=== PATIENT | male | born 1960 | race Caucasian/White ===

== ENCOUNTER → 2024-01-07 06:47 | Outpatient (REF) | payer BC, SELFPAY ==
[2024-01-07 10:43] LABS: ALT (SGPT) 25 U/L (0-50); AST (SGOT) 27 U/L (17-59); Albumin 4.1 g/dl (3.5-5.0); Alkaline Phosphatase 65 U/L (38-126); Blood Urea Nitrogen 15 mg/dl (9-20); Calcium 9.6 mg/dl (8.4-10.2); Carbon Dioxide 23 mmol/L (22-30); Chloride 105 mmol/L (98-107); Glucose 96 mg/dl (70-99); HDL Cholesterol 39 mg/dl; LDL Cholesterol, Calculated 60 mg/dl; Potassium 4.2 mmol/L (3.5-5.1); Sodium 137 mmol/L (135-145); Total Bilirubin 1.2 mg/dl (0.2-1.3); Total Cholesterol 124 mg/dl (50-199); Total Protein 6.9 g/dl (6.3-8.2); Triglyceride 127 mg/dl (10-149); Very Low Density Lipoprotein 25 mg/dl (0-30); eGFR > 60.00
== END ==
LOC: HWLAB 06:47
PROVIDERS: ATTENDING PHYSICIAN Internal Medicine Cardiovascular Disease; FAMILY PHYSICIAN Family Medicine
DX: E78.5 Hyperlipidemia, unspecified (principal); I11.9 Hypertensive heart disease without heart failure
CPT/HCPCS: 36415; 80053; 80061

== ENCOUNTER → 2024-04-03 12:59 | Outpatient (REF) | payer BC, SELFPAY | LOC: HWRAD 12:59 | PROVIDERS: ATTENDING PHYSICIAN Thoracic Surgery (Cardiothoracic Vascular Surgery); FAMILY PHYSICIAN Family Medicine | DX: I35.0 Nonrheumatic aortic (valve) stenosis (principal); Q23.1 Congenital insufficiency of aortic valve | CPT/HCPCS: 71275; 74174; Q9967 ==

== ENCOUNTER 2024-04-17 06:07 | Day surgery (SDC) | payer BC, SELFPAY ==
[2024-04-17] VITALS (7 sets, daily range): BP systolic 106–119; BP diastolic 60–77; BMI 28.4
[2024-04-17] MEDS: NSS 284 ML IV (06:55)
[2024-04-17] MEDS: NSS 1000 IV (09:17)
--- NOTE | 2024-04-17 09:17 | ITS.CL.CATH ---
General Forecaster - Catheterization
Cardiac Catheterization
Procedure Report:
CARDIAC CATHETERIZATION REPORT
Date of Procedure: 04/17/2024
Referring: Mike Mason MD
Indication: Preop angiogram for planned AVR/repair of ascending aortic aneurysm
HEMODYNAMIC DATA
AO: 100/69
LV: 129/18
The mean gradient across the aortic valve is 27 mmHg
LEFT VENTRICULOGRAPHY: Normal left ventricular size and function with EF 61%
ASCENDING AORTOGRAPHY: Mild dilation of the aortic root and borderline dilation of the ascending aorta. There is 2+ aortic regurgitation
CORONARY ANGIOGRAPHY
Dominance: Left
Left Main: Normal
LAD: Mild calcification without focal areas of stenosis
Circumflex: Mild calcification without focal areas of stenosis in the dominant circumflex system
RCA: Normal nondominant vessel
Closure Device: None-the procedure was performed via the right radial artery
Radiation (mGy): 265
DAP (cm2.Gy): 24.5
Fluoroscopy time: 3.1 minutes
CONCLUSIONS
1: Moderate aortic stenosis with mean gradient 27 mmHg. Of note the echo derived aortic valve mean gradient was 40 mmHg
2. Moderate aortic insufficiency
3. Mild dilation of the aortic root and borderline size of ascending aorta
4: Normal left ventricular function with EF 61%
5. No significant CAD
Copy to: Mike Mason MD, Ariel Uribe MD
Riaz Paige MD, [facility], [facility]
== END 2024-04-17 11:59 | disposition home or self-care (01) ==
LOC: CATH 06:07
PROVIDERS: ATTENDING PHYSICIAN Internal Medicine Cardiovascular Disease; FAMILY PHYSICIAN Family Medicine; OTHER PHYSICIAN Internal Medicine Cardiovascular Disease
DX: I71.21 Aneurysm of the ascending aorta, without rupture (principal); I35.0 Nonrheumatic aortic (valve) stenosis; I47.10 Supraventricular tachycardia, unspecified; I10 Essential (primary) hypertension; E78.5 Hyperlipidemia, unspecified; Z87.891 Personal history of nicotine dependence; Z79.82 Long term (current) use of aspirin
CPT/HCPCS: 93458; 93567; C1894; Q9967

== ENCOUNTER 2024-05-01 05:16 | Inpatient (IN) | payer BC, SELFPAY ==
[2024-04-13 09:26] LABS: INR 1.02; PT 13.4 Sec (11.4-14.6)
[2024-04-13 09:27] LABS: APTT 27.2 Sec (23.4-35.0)
[2024-04-13 09:37] LABS: % Basophils 1.2 % (0-2); % Eosinophils 3.6 % (0-6); % Immature Granulocytes 0.4 % (0-0.5); % Lymphocytes 22.5 % (20.5-51.1); % Monocytes 8.9 % (1.7-9.3); % Neutrophils 63.4 % (42.2-75.2); Absolute Basophils 0.1 10^3/uL (0-0.2); Absolute Eosinophils 0.3 10^3/uL (0-0.7); Absolute Lymphocytes 1.8 10^3/uL (1.2-3.4); Absolute Monocytes 0.7 10^3/uL (0.1-0.6); Absolute Neutrophils 5.1 10^3/uL (1.4-6.5); Hematocrit 41.3 % (39.0-52.0); Hemoglobin 14.4 g/dL (13.0-18.0); Mean Corp Hgb Conc. 34.9 g/dL (33.0-37.0); Mean Corpuscular Hgb 30.3 pg (27.0-31.0); Mean Corpuscular Volume 86.9 fL (80.0-94.0); Mean Platelet Volume 9.1 fL (7.4-10.4); Nucleated Red Blood Cells % 0 % (-); Platelet Count 264 10^3/uL (130-400); Red Blood Cell Count 4.75 10^6/uL (4.70-6.10); Red Cell Dist. Width 13.2 % (11.5-14.5); White Blood Cell Count 8.1 10^3/uL (4.8-10.8)
[2024-04-13 10:03] LABS: ALT (SGPT) 21 U/L (0-50); AST (SGOT) 24 U/L (17-59); Albumin 4.3 g/dl (3.5-5.0); Alkaline Phosphatase 66 U/L (38-126); Blood Urea Nitrogen 13 mg/dl (9-20); Calcium 9.6 mg/dl (8.4-10.2); Carbon Dioxide 30 mmol/L (22-30); Chloride 106 mmol/L (98-107); Direct Bilirubin 0.2 mg/dl (0.0-0.4); Glucose 91 mg/dl (70-99); Potassium 5.4 mmol/L (3.5-5.1); Sodium 141 mmol/L (135-145); Total Bilirubin 0.9 mg/dl (0.2-1.3); eGFR > 60.00
[2024-04-13 10:22] LABS: Urine Albumin Negative (Neg - Trace); Urine Bilirubin Negative (Negative); Urine Character Clear (Clear); Urine Color Yellow; Urine Glucose Negative (Negative); Urine Ketone Negative (Negative); Urine Leukocyte Negative (Negative); Urine Nitrite Negative (Negative); Urine Occult Blood Negative (Negative); Urine Urobilinogen Negative (Neg - 1+); Urine pH 6.5 (5.0-9.0)
--- NOTE | 2024-04-13 10:30 | CM ---
CM met w/ patient during PATs for planned AVR, 05/01.
Patient resides in a private, split level home w/ dtr., Sho (RN). There are 1 PETER and 5 steps between each level.
Pt. is functionally indep. 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
Pt. has RX plan and uses [facility] in [place] on [address] for prescription needs.
Soap, shower instructions and Cardiac Surgery booklet provided.
Reviewed pre and post op routines.
Discussed post op restrictions to include lifting, driving, flying and sternal precautions.
Discussed post op MD appts., Cardiac Rehab and visit from CT Transitional Care RN.
Plan is for AVR, 05/01.
Anticipated DC plan is for home with [facility] Transitional [facility] RN.
CM to follow.
[2024-04-13 10:49] LABS: Glycohemoglobin (HgbA1c) 5.6 % (4.0-5.6)
[2024-04-13 13:12] VITALS: BMI 28.0
[2024-05-01] MEDS: LOPRESSOR 25 MG PO (05:53)
[2024-05-01] MEDS: BACTROBAN 2% OINTMENT 1 APPLIC NASAL ×2 (05:53→20:02)
[2024-05-01] MEDS: MAGNESIUM OXIDE 500 MG PO (05:53)
[2024-05-01] MEDS: PROTONIX 40 MG PO (05:53)
[2024-05-01 06:00] VITALS: BMI 27.4
--- NOTE | 2024-05-01 06:09 | W.CVOR.SURPR ---
CVOR Surgeon Immed Pre Op
-
I have examined this patient prior to performance of the scheduled procedure.
The patient's condition is unchanged from the time of the dictated/written History and
Physical and the patient is able to undergo the scheduled procedure.
Sternotomy AVR (biological) + LA MAZE + ANITA Clip
[2024-05-01 07:24] LABS: Urine Albumin Negative (Neg - Trace); Urine Bilirubin Negative (Negative); Urine Character Clear (Clear); Urine Color Yellow; Urine Glucose Negative (Negative); Urine Ketone Negative (Negative); Urine Leukocyte Negative (Negative); Urine Nitrite Negative (Negative); Urine Occult Blood Negative (Negative); Urine Urobilinogen Negative (Neg - 1+)
[2024-05-01 07:35] LABS: ACT+ - POC 90 Seconds (82-134)
[2024-05-01 08:13] LABS: ACT+ - POC 439 Seconds (82-134)
[2024-05-01 08:32] LABS: B.E. - POC 0.4 mmol/L; Glucose - POC 106 mg/dl (65-99); HCO3 - POC 26 mmol/L (21-29); Hematocrit - POC 36 % PCV (42-52); Hemodilution- POC No; Hemoglobin Calculated - POC 12.3; Ionized Calcium - POC 1.23 mmol/L (1.12-1.27); O2 Saturation %Calculated-POC 99.8 5 (92-96); PCO2 - POC 43 mmHg (35-45); PO2 - POC 229 mmHg (80-100); POC Comment PRE; Sodium - POC 144 mmol/L (135-145); pH - POC 7.39 (7.35-7.45)
[2024-05-01 08:42] LABS: ACT+ - POC 538 Seconds (82-134)
[2024-05-01 09:14] LABS: B.E. - POC 2.3 mmol/L; Glucose - POC 109 mg/dl (65-99); HCO3 - POC 27 mmol/L (21-29); Hematocrit - POC 27 % PCV (42-52); Hemodilution- POC Yes; Hemoglobin Calculated - POC 9.3; PCO2 - POC 38 mmHg (35-45); PO2 - POC 468 mmHg (80-100); POC Comment CPB; Potassium - POC 5.5 mmol/L (3.6-5.0); Sodium - POC 141 mmol/L (135-145); pH - POC 7.45 (7.35-7.45)
[2024-05-01 09:25] LABS: ACT+ - POC 508 Seconds (82-134)
[2024-05-01] MEDS: ANCEF 10 IV ×2 (09:45→12:04)
[2024-05-01 09:49] LABS: B.E. - POC -3.9 mmol/L; Glucose - POC 152 mg/dl (65-99); HCO3 - POC 22 mmol/L (21-29); Hematocrit - POC 34 % PCV (42-52); Hemodilution- POC Yes; Hemoglobin Calculated - POC 11.4; Ionized Calcium - POC 1.06 mmol/L (1.12-1.27); O2 Saturation %Calculated-POC 99.9 5 (92-96); PCO2 - POC 41 mmHg (35-45); PO2 - POC 372 mmHg (80-100); POC Comment REWARM; Potassium - POC 5.4 mmol/L (3.6-5.0); Sodium - POC 147 mmol/L (135-145); pH - POC 7.33 (7.35-7.45)
[2024-05-01 09:55] LABS: ACT+ - POC 87 Seconds (82-134)
[2024-05-01 10:07] LABS: B.E. - POC 3.4 mmol/L; Glucose - POC 137 mg/dl (65-99); HCO3 - POC 28 mmol/L (21-29); Hematocrit - POC 31 % PCV (42-52); Hemodilution- POC Yes; Hemoglobin Calculated - POC 10.4; Ionized Calcium - POC 1.21 mmol/L (1.12-1.27); O2 Saturation %Calculated-POC 99.9 5 (92-96); PCO2 - POC 42 mmHg (35-45); PO2 - POC 342 mmHg (80-100); POC Comment POST; Potassium - POC 4.5 mmol/L (3.6-5.0); Sodium - POC 145 mmol/L (135-145); pH - POC 7.44 (7.35-7.45)
--- NOTE | 2024-05-01 10:30 | W.PN.CT.SURG ---
CT Surgery Operative Note
-
CARDIAC SURGERY OPERATIVE REPORT
Preoperative Diagnosis: Mixed aortic valve stenosis and insufficiency with bicuspid valve morphology and new onset atrial fibrillation
Postoperative Diagnosis: Same
Procedure(s) Performed:
1. Standard sternotomy with aortic and right atrial cannulation
2. Surgical aortic valve replacement [27 mm bioprosthesis]
3. Surgical left atrial ablation [modified maze]
4. Left atrial appendage exclusion [35 mm clip]
5. Placement of temporary ventricular pacing wires
6. Transesophageal echocardiography
Date of Surgery: 05/01/2024
Comorbidities:
1. Moderate aortic valve stenosis and moderate aortic valve insufficiency, symptomatic
2. Paroxysmal atrial fibrillation
3. Hypertension
4. Hyperlipidemia
5. Bicuspid aortic valve morphology
6. Orthopedic issues
Attending Surgeon: Mike Mason MD, MS
Assistants: Mike Rolle PA-C (present and necessary to ophthalmic assistant, retraction, suction, exposure, suture management, and wound closure under my direction)
Anesthesiology: Gabe Correa MD and Stella Muniz CRNA
Scrub and Circulating RNs: Diane Maynard RN, Kelli Damon RN
Sales Ledger Clerk: Severo Medrano CCP
Anesthesia: GETA
EBL: per perfusion records
Products: None
CPB Time: 78 minutes
Aortic Cross Clamp Time: 68 minutes
Indication(s) for Procedures: This is a 63-year-old male with known bicuspid aortic valve morphology and also family history of bicuspid aortic valve disease requiring surgical intervention, he has preserved left ventricular ejection fraction and a
normal ascending and root diameter on CT angiogram. He did develop more recently shortness of breath and fatigue with exertion. This has become more noticeable over the last 6 months when he was previously asymptomatic. Due to his mixed
pathology, I believe he met indication for surgical intervention. He also developed new onset atrial fibrillation and so a maze procedure was offered.
Aortic Valve Description: Bicuspid aortic valve with left right fusion, type II, heavily calcified at the commissures inserting into the base of the annulus, left and right coronary arteries were in the normal anatomic positions with a smaller right
coronary ostium.
Findings: His left ventricular ejection fraction preoperatively was normal at 60%. Following surgery his EF remained the same at 60%. There were no new regional wall motion abnormalities. He had a mean gradient of 27 mmHg in a solid degree of
moderate aortic valve insufficiency with a slightly dilated left ventricle. His aortic valve was replaced with a 27 mm bioprosthesis using a total of 15 nonpledgeted 2 Ethibond sutures anchored with core knots. His left atrial appendage was
verified to be free of any thrombus or debris preoperatively and found to be totally occlusive postoperatively with a 35 mm clip. Using the encompass clamp a 3 successful pairs of ablations were performed completing the PVI and posterior left
atrial wall ablation lines. After coming off of cardiopulmonary bypass there is no paravalvular leak, a mean gradient of 4 across the new bioprosthesis, and normal leaflet excursion. RV function and size were both normal. He did not require any
inotropic support, he did not require any pacing support, he did not require any products.
Specimen(s): Aortic valve.
Prosthesis:
1. 27 mm Kinney Inspiris Resilia AVR, serial #[id number]
2. 35 mm left atrial appendage clip, serial #[id number]
Left atrial ablation lines:
1. Bilateral pulmonary vein isolation
2. Posterior box lesion
3. Division of the ligament of Segundo
4. Left atrial appendage exclusion with a clip
Description of Procedure: The patient was taken to the operating room. Their identity and procedure to be performed were verified and they were positioned supine on the operating table. Induction via general anesthesia with endotracheal intubation
was performed and central venous access and arterial monitoring were inserted. A preoperative transesophageal echocardiogram was performed to assess cardiac function and valvular function. The patient was then prepped and draped from chin to feet in
a sterile fashion. A preoperative time-out was performed with all members of the team present. A midline chest incision was performed along with median sternotomy. The innominate vein was isolated. Full heparinization was given (a total of 45,000
units). We created a pericardial well. The aortic cannulation site was chosen where it was soft, pliable, and free of calcium. Cannulation was performed with an arterial cannula in the ascending aorta and a triple-stage venous cannula through the
right atrial appendage. The arterial cannula line had an appropriate bounce and correlating pressures with test dosing. Next, a root vent/antegrade cannula was inserted into the ascending aorta. The ACT was confirmed to be over 400 and retrograde
autologous priming was performed before commencing cardiopulmonary bypass. A retrograde coronary sinus catheter was placed via the right atrium and verified by manual palpation and transesophageal echocardiography. At this point the oblique sinus
was developed as was the space between the superior vena cava and the right coronary artery. The encompass ablation clamp was then placed across both sinuses and 3 successful pair of ablations were performed. The pulmonary artery was
away from the aorta to facilitate a clamp site and aortotomy. A left ventricular vent was placed at the right superior pulmonary vein and secured. The aortic cross-clamp was placed after decreasing the flow on the bypass and mean arterial pressure.
A total of 1.2L initial dose of antegrade and retrograde Del-Nido cardioplegia solution was given and planned for re-dosing every 75 minutes as necessary. There was electro-mechanical arrest of the heart at 750 cc of cardioplegia. The left ventricle
was observed for distention on echocardiogram and manual palpation. Cold slush was placed into a sponge and topically on the RV while we systemically cooled to 34 degrees centigrade. As there was a bit of the leg and cardiac arrest, I did give
additional ostial cardioplegia which resulted in satisfactory electro myocardial quiescence. With the heart arrested, I medialized and divide the ligament of Segundo in place a 35 mm clip flush the base of the left atrial appendage.
Carbon dioxide was used to flood the field. We manually identified the location of the right coronary take off. An aortotomy was made approximately 2cm above the sinotubular junction. The location of both left and right coronary vessels were
visualized in the root.The leaflets were excised and sent for pathological assessment. The annulus was debrided of any calcium being mindful of the annulus and membranous septum. The root and left ventricular outflow tract were thoroughly irrigated
to remove any debris. A total of 15 non-pledgeted 2-0 ethibond inverted annular sutures were placed [id number] circumferentially. These were brought through the sewing cuff of the prosthetic valve which as then parachuted into place. The left and
right coronary ostia were visualized and were unobstructed by the valve. A Cor-Knot device was used to secure the annular sutures. The valve was inspected and was well seated. The aortotomy was approximated with 4-0 prolene in two layers. De-airing
maneuvers were performed and temporary bipolar ventricular pacing wires were placed on the base of the right ventricle. The patient was placed in a Trendelenburg position and flows on bypass were lowered. The aortic cross clamp was removed and flows
were slowly brought back up. The aortotomy appeared hemostatic. Transesophageal echocardiography revealed no paravalvular leak and appropriate prosthetic function. Once de-airing was satisfactory, the left ventricular and retrograde cannulas were
removed. After verifying acceptable parameters, we initiated weaning from cardiopulmonary bypass. Once we were off cardiopulmonary bypass, the venous cannula was clamped and removed. The root vent was removed once de-airing was satisfactory. A test
dose of protamine was administered and the patient was monitored for any adverse reaction before resuming protamine. Once half of the protamine dose was delivered, pump suckers were turned off and the systolic blood pressure was lowered for aortic
decannulation. The aortic cannula was removed and pursestrings were tied down. All cannulation sites were oversewn with a 4-0 prolene. The aortotomy suture line was inspected and hemostasis was confirmed. Mediastinal hemostasis was obtained. Two
24Fr Chidi drains were placed within the pericardium. The sternum was approximated with 4 #7 single and 3 #8 double stainless steel wires. There was some bleeding from one of the left sided double wires and so this was ligated with large Vicryl
suture to good effect. Fascia was approximated with #1 vicryl suture. The subcutaneous, dermis and epidermis were closed in layers in a running fashion. The skin wound was cleansed and dressed.
All instrument, sponge, and needle counts were confirmed to be correct x 2 at the end of the operation. The patient was transferred to the cardiac intensive care unit in critical but stable condition.
IDr. Mike, was present, scrubbed for, and performed all critical elements of this procedure.
Mike Mason MD, MS
Cardiothoracic Surgeon
[facility]
This operative dictation was created using the [employer] dictation system. Please excuse any grammatical, typographical, or 'sound alike' errors
--- NOTE | 2024-05-01 10:35 | W.PN.CD ---
Addendum entered and electronically signed by Evelia Fay MD 05/01/24 12:07:
I saw and examined the patient.
The GENERAL FOUNDRY WORKER's note was reviewed and I agree with the note.
Comment: 63 y/o male with bicuspid aortic valve, aortic stenosis, aortic insufficiency, dilated aortic root, hypertension, dyslipidemia, PSVT, ventricular ectopy, and dyslipidemia who is now s/p AVR.He is doing well post op. On exam, he is sedated
but opens his eyes to name. On a small amount of levophed. Continue post op day 0.
Original Note:
Today's Communication / Plan
-
Close post-op monitoring and care with weaning of drips and vent as tolerated per CT surgery and CVICU protocol
Impression / Plan
-
63 y/o male with bicuspid aortic valve, aortic stenosis, aortic insufficiency, dilated aortic root, hypertension, dyslipidemia, PSVT, ventricular ectopy, and dyslipidemia who is now s/p AVR.
Aortic stenosis and insufficiency, bicuspid aortic valve:
-s/p bio AVR, MAZE, ANITA clip 05/01/24 Dr. Mason
-intra-op TANYA with EF 60%
-post-op EKG and tele stable in SR
-Cabrera, CT's, pacer wire in place
-post-op CXR pending
HTN:
-monitor post-op
Hx pSVT, Ventricular ectopy:
-tele stable in SR
-continue BB and follow telemetry
-of note, per CT surgery note patient with history of PAF with MAZE and clip done as noted. Details of PAF unclear to me currently- obtain more info when patient alert. Follow telemetry.
HLD:
-on statin as OP
Physical Exam
Vital Signs/Labs
Vital Signs
Temp Pulse Resp BP Pulse Ox
99.3 F 76 18 121/79 98
05/01/24 05:50 05/01/24 05:53 05/01/24 05:50 05/01/24 05:53 05/01/24 05:50
04/30/24 05/01/24 05/02/24
06:59 06:59 06:59
Actual Weight 91.4 kg
PT 13.4 Sec (11.4-14.6) 04/13/24 08:31
INR 1.02 04/13/24 08:31
APTT 27.2 Sec (23.4-35.0) 04/13/24 08:31
Physical Exam
Constitutional: No acute distress
EENT: Anicteric
Cardiovascular: Rhythm & rate is regular
Respiratory: Lungs clear to auscul. and Other (intubated and ventilated)
Neuro/Psych: Other (sedated)
Other: Skin (midsternal incision site stable )
Data Reviewed
-
Date of Service: May 01, 2024
EKG: Report Reviewed by me (as above)
Labs: Labs Reviewed by me
--- NOTE | 2024-05-01 10:46 | W.PN.UPDATE ---
Update Note
Progress Note Update
63 year old male electively admitted on 05/01/2024 for AVR, MAZE, and left atrial appendage clip due to bicuspid aortic valve with aortic stenosis and PSVT/ new onset AFib
IV fluids: 1200
U.O.:� 400
Blood:� none
Wires:� Bipolar V-wire
Gtts: Levo @ 2, Precedex @ 0.5, Insulin
�
NEURO: sedated on Precedex, pupils +2mm B/L
RESP: #8OT @22cm> 500/60%/07/02. Lungs clear B/L. 2 mediastinal (10cc on arrival) chest tubes to -20cm suction. Sanguineous drainage
CV: RRR +S1, S2, no S3, no�rub, no murmur. Dermabond to median sternotomy. RIJ w/Tomball locked @ 52cm. PA 24/11; CVP 6; C.O 5/CI 2.1
ABD: round, soft, no BS
EXT: no edema, +2/4 DP pulses B/L, no femoral bruit, right radial A-line intact
: Cabrera with clear yellow urine
�
A/P: POD #0 s/p AVR #27 mm Kinney Inspiris Resilia tissue valve, left atrial ablation [modified maze], left atrial appendage exclusion [#35 mm clip]
TANYA: EF�65%, AV 7/4mmHg, no AI. Trace TR. Asc Ao 3.8cm
- wean Levo to maintain MAP>60
- wean and extubate
- will need instruction regarding antibiotic prophylaxis for dental and invasive procedures
- will need predischarge TTE
�
# acute surgical blood loss anemia-expected
- post-op Hb 10.9
- Ferric gluconate x 3 doses
- trend CBC
�
# Post-op hyperglycemia-expected (A1C 5.6)
- insulin infusion x 24h
- trend glucose>SSI of needed after insulin infusion DC'd
# Hypertension
- resume Toprol XL 100mg daily when BP permits and off Levophed
�
# Hyperlipidemia
- resume�home dose of Crestor 10mg daily when tolerating solids
# Moderate emphysema (per CT C/A/P)
- FEV1 80%; DLCO 82%
- quit tobacco 4 years ago
- pulmonary senior consultant following post-op
- prn nebs ordered
[2024-05-01 10:47] LABS: Glucose - Point of Care 140 mg/dl (70-99)
--- NOTE | 2024-05-01 11:00 | PTCARENOTE ---
received patient from [facility] sedated and placed on vent by MEDICAL BILLING REPRESENTATIVE. out with usual lines, CTx2. on levo precedex and insulin per glycemic protocol. CXR, EKG done and labs drawn. v wires present but off. SR on monitor. HR 80-90s. CT connected to wall
suction. no air leaks/crepitus noted. Draining red. Bowel sounds hypoactive. Cabrera draining clear yellow urine. Pulses palpable. no edema. MSI open to air with surgical glue. approximated. will continue ot monitor.
[2024-05-01 11:04] LABS: Hematocrit 30.8 % (39.0-52.0); Hemoglobin 10.9 g/dL (13.0-18.0); Platelet Count 139 10^3/uL (130-400)
[2024-05-01 11:08] LABS: B.E. 1.5 mmol/L; HCO3 26.6 mmol/L (21-28); Ionized Calcium 1.16 mMOL/L (1.15-1.33); O2 Saturation % 99.1 % (94-98); PCO2 43 mmHg (35-48); PO2 171 mmHg (83-108); Potassium 4.3 mMOL/L (3.5-5.1); Sodium 141 mMOL/L (136-145)
[2024-05-01 11:10] LABS: INR 1.49; PT 17.8 Sec (11.4-14.6)
--- NOTE | 2024-05-01 11:10 | CM ---
Chart reviewed. Patient is in the OR. Patient is independent of ADLS, lives with his daughter in a split level home, 1 PETER, 0 DME. Plan is for the patient to return home with CT Transitional RN. CM to follow
[2024-05-01 11:11] LABS: APTT 33.2 Sec (23.4-35.0); Mixed Venous O2 Saturation 79.1 %
[2024-05-01 11:12] LABS: Blood Urea Nitrogen 12 mg/dl (9-20); Estimated Creatinine Clearance 122 ml/min; Glucose 136 mg/dl (70-99); Magnesium 2.7 mg/dl (1.6-2.3)
--- NOTE | 2024-05-01 11:32 | CON.INTV ---
Consultation
Consultation Request
Date/Time Consultation Requested: 05/01/2024956
Date/Time Consultation Performed: 05/01/2024 - 1022
Requesting Provider: Deanna Fernandez PA-C
Performing Provider: Ariel Robert MD
Reason for Consultation: s/p SAVR
Medical History
-
Chief Complaint: Elective SAVR
History of Present Illness:
63-year-old male former tobacco smoker (80-btzd-oumv, quit 2019) with a past medical history of severe aortic valve stenosis, bicuspid aortic valve, AAA, hypertension, hyperlipidemia and paroxysmal SVT who presents with surgical aortic valve
replacement. Patient known to cardiothoracic surgery with last office visit on 03/28/2024 Dr. Mason. Most recent echo from December 2023 showed severe aortic valve stenosis with a preserved LVEF at 59% and no regional WMA. Patient was describing
worsening fatigue/shortness of breath especially with exertion. He remains an active man. He underwent left heart catheterization on 04/17/2024 showing moderate aortic stenosis with mean gradient across the AV of 20 mmHg, with no significant CAD.
Surgical treatment of his AV stenosis was discussed, and today he underwent sternotomy with SAVR, surgical LA-ablation (modified MAZE) with ANITA�exclusion. Patient tolerated procedure well and was transferred to the CVICU postoperatively with
critical care services consulted for additional management/recommendations.
When I saw the patient he was in bed, minimally sedated but answering questions appropriately and wants the tube out of his throat. He was in NAD. Heart rate 99, BP via right radial A-line 97/69, PAP: 27/16, SpO2 99% on SIMV 14/500/40%/5 with PIP
15 cmH2O, breathing at 13 breaths/min and VTe 520 mL, CO/CI: 5.1/2.38. He is on insulin gtt at 3 units/hr, Precedex 0.3mcg/kg/hr and Levophed at 1mcg/min. He has mediastinal chest tubes x 2.
PMHx: Bicuspid aortic valve, AAA, severe aortic valve stenosis, paroxysmal SVT, hypertension, torn meniscus, hyperlipidemia, frozen right shoulder, former tobacco use disorder
PSHx: Hernia repair as a child
Past Medical History
Past Medical History: Other (Above as per HPI)
Past Surgical History: Other (Above as per HPI)
Social History
Tobacco: Former Smoker (Quit in 2019, 60-woua-eovb history)
Alcohol: None
Drug: None
Personal:
Living: With Family (his father)
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
Family History
Family History: Cancer (Father: Colon cancer) and Other (Mother: Alzheimer's dementia; bicuspid aortic valve s/p mechanical SAVR)
Allergies / Home Medications
Allergies
Allergy/AdvReac Type Severity Reaction Status Date / Time
No Known Allergies Allergy Verified 04/17/24 06:38
Home Medications
�Medication �Instructions �Recorded �Confirmed �Last Taken �Type
ascorbic acid (vitamin C) 1,000 mg 1,000 mg PO DAILY Supplement 04/07/24 05/01/24 04/30/24 08:00 History
tablet (Vitamin C)
metoprolol succinate 100 mg 100 mg PO DAILY Heart 04/07/24 05/01/24 04/30/24 08:00 History
tablet,extended release 24 hr Disease/Condition
rosuvastatin 10 mg tablet 10 mg PO DAILY High Cholesterol 04/07/24 05/01/24 04/30/24 08:00 History
tadalafil 10 mg tablet (Cialis) 10 mg PO DAILY PRN ED 04/07/24 05/01/24 04/30/24 08:00 History
valacyclovir 1 gram tablet 1 mg PO PRN PRN cold sores 04/07/24 05/01/24 04/30/24 08:00 History
(Valtrex)
aspirin 81 mg tablet,delayed 81 mg DAILY Blood Clot 04/17/24 04/17/24 04/30/24 08:00 History
release Prevention/Tx
Review of Systems
-
Unable to Obtain full review of systems at this time due to: Patient Intubation
Vitals / Labs / Diagnostic Testing
Vital Signs
Temp Pulse Resp BP Pulse Ox
97 F 90 14 121/79 98
05/01/24 11:00 05/01/24 10:58 05/01/24 10:58 05/01/24 05:53 05/01/24 10:58
Lab Data
05/01/24 10:35
Laboratory Results
05/01/24
10:35
PT 17.8 H
INR 1.49
APTT 33.2
pH 7.40
pCO2 43
pO2 171 H
HCO3 26.6
O2 Delivery Level
Diagnostic Testing:
Physical Exam
-
HEENT: Normocephalic, Anicteric and Other (ETT in place)
Cardiovascular: S1/S2 and Peripheral Edema (negative)
Respiratory: Wheeze (negative), Rales (negative), Rhonchi (negative), Non-Labored Respirations, Other (Mechanical breath sounds heard bilaterally) and Other (Chest tube (mediastinal x 2))
GI: Soft, Non Distended, Non Tender and Normal Bowel Sounds
Neurology: Awake, Alert and Tremors (negative)
Skin: Warm and Dry
General: Respiratory Distress (negative), Comfortable, Chills (negative) and Sweats (negative)
Assessment
-
Assessment: 63-year-old male former tobacco smoker (76-[id number]-bbya, quit 2019) with a past medical history of severe aortic valve stenosis, bicuspid aortic valve, AAA, hypertension, hyperlipidemia and paroxysmal SVT who presents with surgical aortic
valve replacement. Patient known to cardiothoracic surgery with last office visit on 03/28/2024 Dr. Mason. Most recent echo from December 2023 showed severe aortic valve stenosis with a preserved LVEF at 59% and no regional WMA. Patient was describing
worsening fatigue/shortness of breath especially with exertion. He remains an active man. He underwent left heart catheterization on 04/17/2024 showing moderate aortic stenosis with mean gradient across the AV of 20 mmHg, with no significant CAD.
Surgical treatment of his AV stenosis was discussed, and on 05/01/2024 he underwent sternotomy with SAVR, surgical LA-ablation (modified MAZE) with ANITA�exclusion. Patient tolerated procedure well and was transferred to the CVICU postoperatively with
critical care services consulted for additional management/recommendations.
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
Impression:
#Aortic valve stenosis/insufficiency with bicuspid valve morphology and new onset paroxysmal atrial fibrillation s/p SAVR, modified MAZE + ANITA�exclusion (POD #0)
#Anemia
#Thrombocytopenia (mild)
#Former tobacco use disorder (90-[id number]-mboe, quit 2019)
#Upper lobe predominant paraseptal emphysema (due to tobacco use)
#History of hypertension
Plan:
Ventilator settings reviewed
FiO2 will be weaned to maintain SpO2 >90-94%
Minute ventilation will be adjusted
Arterial blood gases will be monitored
Spontaneous breathing trial will be attempted with hopeful extubation after anesthesia/sedation wear off
prn nebulized bronchodilators
Pulmonary artery catheter parameters will be followed
Pressors/antihypertensive/inotropes/diuretics will be provided as needed
Maintain MAP>65
Replete electrolytes with K>4, Mg>2
Monitor chest tube output
Monitor hemoglobin
Monitor platelet count and coags
Transfuse blood product if needed to maintain Hb>7g/dL, plt>50k (given post-operative status)
CT surgery managing chest tubes (mediastinal x 2)
Monitor blood sugar to maintain euglycemia with goal BG 140-180
Insulin drip per protocol
Aspiration precautions
VAP prevention protocol
DVT prophylaxis
Early nutrition
Early mobilization
Given his significant tobacco use history, he does qualify for annual LDCT chest. He recently had a CT chest on 04/03/2024 showing moderate bilateral upper lobe paraseptal emphysema with no focal consolidation, mass or nodule seen. Next CT chest
should be done in March 2025. Outpatient follow-up will be arranged to discuss lung cancer screening as well as obtain full PFTs to assess for COPD.
Critical care services will continue to follow along while patient remains in the CVICU.
Critical care statement: A total of 46 minutes of critical care time was provided for this patient today. This includes management of ventilator, spontaneous breathing trial, arterial blood gases, pressors, of unstable vital signs, evaluation of the
patient at bedside, reviewing the patient's pertinent medical records including radiographs, microbiology, laboratory evaluations, and discussion with primary team and critical care nursing.
[2024-05-01] MEDS: CALCIUM CHLORIDE 10% SYRINGE 50 ML IV (11:59)
[2024-05-01] MEDS: CALCIUM CHLORIDE 10% SYRINGE 50 MG IV (11:59)
[2024-05-01] MEDS: NSS 500 IV (12:03)
[2024-05-01 12:04] LABS: Glucose - Point of Care 138 mg/dl (70-99)
[2024-05-01] MEDS: CRESTOR PO (12:04)
[2024-05-01] MEDS: NEURONTIN PO (12:04)
[2024-05-01] MEDS: VITAMIN C PO (12:04)
[2024-05-01 13:14] LABS: Glucose - Point of Care 128 mg/dl (70-99)
[2024-05-01 13:52] LABS: B.E. 2.8 mmol/L; HCO3 27.2 mmol/L (21-28); Ionized Calcium 1.36 mMOL/L (1.15-1.33); PCO2 40 mmHg (35-48); PO2 183 mmHg (83-108); pH 7.44 (7.35-7.45)
[2024-05-01 13:54] VITALS: BP_SYST 91
[2024-05-01 14:03] LABS: Hematocrit 32.7 % (39.0-52.0); Hemoglobin 11.7 g/dL (13.0-18.0); Platelet Count 181 10^3/uL (130-400)
[2024-05-01] MEDS: DILAUDID 0.25 MG IV (14:07)
--- NOTE | 2024-05-01 14:11 | PTCARENOTE ---
extubated 1400 to 6L nc with DATABASE SECURITY EXPERT at bedside. pulse ox 99% IS 1250;
[2024-05-01 14:14] LABS: Glucose - Point of Care 99 mg/dl (70-99)
[2024-05-01 15:19] LABS: Glucose - Point of Care 142 mg/dl (70-99)
[2024-05-01] MEDS: TYLENOL 1000 MG PO ×2 (15:21→22:01)
[2024-05-01] MEDS: LOW STRENGTH ASPIRIN 81 MG PO (15:25)
[2024-05-01] MEDS: NEURONTIN 100 MG PO ×2 (15:25→22:02)
[2024-05-01] MEDS: PACERONE 200 MG PO ×2 (15:25→22:02)
[2024-05-01] MEDS: DILAUDID 0.5 MG IV ×2 (16:18→19:07)
[2024-05-01] MEDS: ANCEF 5 IV (17:26)
[2024-05-01 17:30] LABS: Glucose - Point of Care 129 mg/dl (70-99)
[2024-05-01 19:16] VITALS: BP 94/63; BP 95/72
[2024-05-01 19:24] LABS: Glucose - Point of Care 129 mg/dl (70-99)
[2024-05-01 20:00] VITALS: BP 104/68; BP 99/72
--- NOTE | 2024-05-01 20:00 | PTCARENOTE ---
Assumed care of patient at 1900. Patient found resting in bed at time of assessment. Patient is AOx4, follows commands appropriately, moves all extremities. Lung sounds are diminished throughout, patient has saO2 96% on 2L via NC, CTx2: 2xmed to one
atrium draining red sanguineous. Heart sound shave a regular rate and rhythm, there is a rub present on auscultation, patient is SR/ST on the monitor. Patient has normal palpable pulses and no edema. Patient has soft nontender abdomen and hypoactive
BS. There is a lowery in place draining clear yellow urine. Patient has sternal incision approx with surg adhesive and travel cota. There is a 4x[address] wounds that is CDI. Patient has R IJ cordis with swan floated to 50cm odalis, R radial A
line, and R AC 18g. Patient has the following gtts: Levo@2, insulin@2.6 and Cordis/VIP KVO. VSS. Patient received prn dose dilaudid from previous RN for incisional pain which appears to have provided adequate relief at this time. Patient is stable.
[2024-05-01] MEDS: SENOKOT-S 1 TABLET PO (20:02)
[2024-05-01 21:00] VITALS: BP 99/73
[2024-05-01 22:00] VITALS: BP 102/76
[2024-05-01 22:08] LABS: Glucose - Point of Care 123 mg/dl (70-99)
--- NOTE | 2024-05-01 22:39 | PTCARENOTE ---
Orders received to discontinue swan rodrick catheter given patient's stable PAP, CVP and CI. Removed, cleaned and redressed without incident.
[2024-05-02] VITALS (23 sets, daily range): BP systolic 93–125; BP diastolic 60–77; PULSE 90; O2SAT 95; BMI 27.7
--- NOTE | 2024-05-02 | PTCARENOTE ---
Patient reassessed. VSS. No c/o pain at this time. Remains SR on the monitor. Levo remains off since 2234 MAP remains >65.
[2024-05-02 00:29] LABS: Glucose - Point of Care 125 mg/dl (70-99)
[2024-05-02] MEDS: ANCEF 5 IV ×2 (01:16→10:11)
[2024-05-02 01:41] LABS: Glucose - Point of Care 119 mg/dl (70-99)
[2024-05-02 02:37] LABS: Glucose - Point of Care 121 mg/dl (70-99)
[2024-05-02] MEDS: ROXICODONE 5 MG PO ×2 (03:41→18:33)
[2024-05-02 03:46] LABS: Hematocrit 29.7 % (39.0-52.0); Hemoglobin 10.5 g/dL (13.0-18.0); Mean Corp Hgb Conc. 35.4 g/dL (33.0-37.0); Mean Corpuscular Hgb 30.3 pg (27.0-31.0); Mean Corpuscular Volume 85.6 fL (80.0-94.0); Platelet Count 163 10^3/uL (130-400); Red Blood Cell Count 3.47 10^6/uL (4.70-6.10); Red Cell Dist. Width 13.6 % (11.5-14.5); White Blood Cell Count 17.6 10^3/uL (4.8-10.8)
[2024-05-02 03:48] LABS: Glucose - Point of Care 104 mg/dl (70-99)
[2024-05-02 04:04] LABS: Blood Urea Nitrogen 18 mg/dl (9-20); Calcium 8.4 mg/dl (8.4-10.2); Carbon Dioxide 28 mmol/L (22-30); Chloride 110 mmol/L (98-107); Estimated Creatinine Clearance 122 ml/min; Glucose 98 mg/dl (70-99); Potassium 3.9 mmol/L (3.5-5.1); Sodium 140 mmol/L (135-145); eGFR > 60.00
--- NOTE | 2024-05-02 04:27 | W.PN.CT ---
Today's Communication / Plan
-
-pod #1
-no issues overnight
-CI 3.03, CO 6.48. Drips: insulin
-CT output: 2 meds 130/295 in 12 /24 hrs
-dcd swan
-d/c a-line
-d/c Cabrera
-d/c insulin
-current meds (ASA, Crestor, Lopressor 25 bid, Amio, Protonix, iv iron/vit C)
-encourage IS, OOB
Assessment / Plan
-
- Mixed AV stenosis and insufficiency with bicuspid valve morphology and new onset a-fib- s/p AVR (27 mm Kinney Inspiris Resilia), modified maze, and LAAE (35 mm clip) by Dr. Mason on 05/01/24, pod #1
- Intraop TANYA: LVEF 60% pre and post, no wma; no paravalvular leak, a mean gradient of 4 across the new bioprosthesis, and normal leaflet excursion. RV function and size were both normal.
- Paroxysmal atrial fibrillation
- Hypertension
- Hyperlipidemia
- Catheterization on 04/17/2024 with no significant CAD
- Hx PSVT
- Hx injury of the ascending colon, open wound of the abdomen
- Ascending aortic aneurysm
- Frozen R shoulder
- Former smoker, quit in 2019
- Acute postop blood loss anemia - stable without transfusion
- Acute postop atelectasis
- Acute postop hypovolemia with subsequent hypervolemia
- Suspected acute postop pericarditis/+rub
Discussed patient care with: Nursing and Care Team
Subjective
Procedure
s/p AVR (27 mm Kinney Inspiris Resilia), modified maze, and LAAE (35 mm clip) by Dr. Mason on 05/01/24
-
Date of Service: May 01, 2024
Objective Data
-
Lab Results
05/01/24 13:40
05/01/24 10:35
PT 17.8 Sec (11.4-14.6) H 05/01/24 10:35
INR 1.49 05/01/24 10:35
APTT 33.2 Sec (23.4-35.0) 05/01/24 10:35
Vital Signs
Vital Signs
Temp Pulse Resp BP Pulse Ox
98.3 F 94 12 99/73 96
05/01/24 21:00 05/01/24 21:35 05/01/24 21:35 05/01/24 21:00 05/01/24 21:35
CT Intake/Output/Weight
05/01/24 05/01/24 05/02/24
06:59 18:59 06:59
Intake Total 855.6 / 1005.9 150.3 / 1005.9
Output Total 835 / 960 125 / 960
Balance 20.6 / 45.9 25.3 / 45.9
SaO2: 96
Physical Exam
-
General: Awake and AOx3
Cardiovascular: Regular rate & rhythm, No Murmurs and Rub
Respiratory: Decreased Breath Sounds
Sternum: Stable
Incision: Clean, Dry and Intact
Extremities: Other (trace edema b/l, 2+ DPs b/l)
Data Reviewed
-
Lab Results: Results Reviewed
Medications: Active Meds Reviewed
Chest X-Ray: Report Reviewed and Image Reviewed
ECG: Report Reviewed and Image Reviewed
[2024-05-02] MEDS: KCL 50 IV (04:33)
[2024-05-02 04:40] LABS: Glucose - Point of Care 111 mg/dl (70-99)
--- NOTE | 2024-05-02 05:46 | PTCARENOTE ---
Patient reassessed. VSS. Patient given oxy 5 for c/o 6/10 sternal incision pain. Orders received to deline patient's marjorie. Deborah discontinued. DTV 1120. AM labs obtained. Patient to be repleted with 20mEq K IV per CT PA. Assisted patient oob to
chair. Remains on 2L O2 via NC.
[2024-05-02] MEDS: TYLENOL 1000 MG PO ×3 (05:48→21:05)
--- NOTE | 2024-05-02 07:00 | PTCARENOTE ---
Bedside walking rounds report received. Patient seen on rounds oob in chair on 2l nasal canula: titrated to room air and pulse ox sats were 94% IS 1250 to 1500ml. NSR with rates in the 90's. Epicardial v wire connected to [email or web address] box and off.
Mediastinal chest tubes x 2 to -20cm wall suction and patent for serosang drainage. See flowrecord for remaining assessments.
[2024-05-02 07:05] LABS: Glucose - Point of Care 136 mg/dl (70-99)
[2024-05-02 07:52] LABS: Glucose - Point of Care 148 mg/dl (70-99)
--- NOTE | 2024-05-02 08:04 | W.PN.ANS.POP ---
Anesthesia Post Operative
- Anesthesia Post Op Note
Vital Signs Stable-See Nursing Note: Yes
Airway Patent: Yes
Adequate Pain Control: Yes
Change in Mental Status: No
Current Postoperative Nausea & Vomiting: No
Anesthesia Complications: No
General Anesthetic Recall: No
Unplanned Admission: No
Post Op Hydration Adequate: Yes
- -
Patient resting comfortably in chair. VSS. No questions or complaints at this time.
[2024-05-02] MEDS: LIDOCAINE 4% PATCH 1 PATCH TOPICAL (08:09)
[2024-05-02] MEDS: TORADOL 15 MG IV ×2 (08:10→16:44)
[2024-05-02] MEDS: VITAMIN C 1000 MG PO (08:10)
[2024-05-02] MEDS: PACERONE 200 MG PO ×3 (08:10→21:05)
[2024-05-02] MEDS: MAGNESIUM OXIDE 500 MG PO ×2 (08:10→19:23)
[2024-05-02] MEDS: NEURONTIN 100 MG PO ×3 (08:11→21:05)
[2024-05-02] MEDS: CRESTOR 10 MG PO (08:11)
[2024-05-02] MEDS: FEOSOL 325 MG PO (08:11)
[2024-05-02] MEDS: LOPRESSOR 25 MG PO ×2 (08:11→19:23)
[2024-05-02] MEDS: PROTONIX 40 MG PO (08:11)
[2024-05-02] MEDS: BACTROBAN 2% OINTMENT 1 APPLIC NASAL ×2 (08:12→19:24)
[2024-05-02] MEDS: LOW STRENGTH ASPIRIN 81 MG PO (08:12)
[2024-05-02] MEDS: SENOKOT-S 1 TABLET PO ×2 (08:12→19:23)
--- NOTE | 2024-05-02 08:50 | W.PN.INTV ---
Today's Communication / Plan
Recommendations
Up OOB as tolerated
Pain control
Encourage incentive spirometer
Insulin drip per protocol
Director Of Professional Services/pulmonary service will follow along while patient remains in the CVICU; once transferred to CVICU�telemetry, we will sign off at that time
Assessment
-
Assessment: 63-year-old male former tobacco smoker (64-yzzu-bfaj, quit 2019) with a past medical history of severe aortic valve stenosis, bicuspid aortic valve, AAA, hypertension, hyperlipidemia and paroxysmal SVT who presents with surgical aortic
valve replacement. Patient known to cardiothoracic surgery with last office visit on 03/28/2024 Dr. Mason. Most recent echo from December 2023 showed severe aortic valve stenosis with a preserved LVEF at 59% and no regional WMA. Patient was describing
worsening fatigue/shortness of breath especially with exertion. He remains an active man. He underwent left heart catheterization on 04/17/2024 showing moderate aortic stenosis with mean gradient across the AV of 20 mmHg, with no significant CAD.
Surgical treatment of his AV stenosis was discussed, and on 05/01/2024 he underwent sternotomy with SAVR, surgical LA-ablation (modified MAZE) with ANITA�exclusion. Patient tolerated procedure well and was transferred to the CVICU postoperatively with
critical care services consulted for additional management/recommendations.
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
Impression:
#Aortic valve stenosis/insufficiency with bicuspid valve morphology and new onset paroxysmal atrial fibrillation s/p SAVR, modified MAZE + ANITA�exclusion (POD #1)
#Anemia
#Thrombocytopenia (mild)
#Former tobacco use disorder (11-bhmi-huwo, quit 2019)
#Upper lobe predominant paraseptal emphysema (due to tobacco use)
#History of hypertension
Plan:
Patient successfully extubated on 05/01/2024
Maintain SpO2 >90-94%
prn nebulized bronchodilators
Encourage incentive spirometer use 10x/hr for at least 4 hrs a day
Pain control
Maintain MAP>65
Replete electrolytes with K>4, Mg>2
Monitor chest tube output (mediastinal chest tubes x2)
Monitor hemoglobin
Monitor platelet count and coags
Transfuse blood product if needed to maintain Hb>7g/dL, plt>50k (given post-operative status)
CT surgery managing chest tubes
Monitor blood sugar to maintain euglycemia with goal BG 140-180
Insulin drip per protocol
Aspiration precautions
DVT prophylaxis
Early nutrition
Early mobilization
Given his significant tobacco use history, he does qualify for annual LDCT chest. He recently had a CT chest on 04/03/2024 showing moderate bilateral upper lobe paraseptal emphysema with no focal consolidation, mass or nodule seen. Next CT chest
should be done in March 2025. Outpatient follow-up will be arranged to discuss lung cancer screening as well as obtain full PFTs to assess for COPD.
Critical care services will continue to follow along while patient remains in the CVICU.
Critical care statement: A total of 46 minutes of critical care time was provided for this patient today. This includes management of ventilator, spontaneous breathing trial, arterial blood gases, pressors, of unstable vital signs, evaluation of the
patient at bedside, reviewing the patient's pertinent medical records including radiographs, microbiology, laboratory evaluations, and discussion with primary team and critical care nursing.
Data:
CXR 05/02/2024:
1. Right internal jugular vascular sheath and mediastinal drains in position. No pneumothorax.
2. Hypoaerated lungs without consolidation.
Subjective Dataa
Subjective Data
Date of Service:
Date of Service: May 02, 2024
Chief Complaint: Director Of Professional Services Follow Up and Pulmonary Follow Up
Subjective:
Seen and evaluated today at bedside. On room air breathing comfortably. Patient's daughter at bedside. All questions were answered. Mediastinal chest tubes x [address]. Heart rate 87, BP 100/70, saturating 97%. On insulin drip at 4 units/hr.
He denies CP, DAVEN[place], abd pain, N/V/f/c.
Review of Systems
General: Other (Negative unless mentioned above)
Objective Data
Data Reviewed
Vital Signs / I&O / Oxygen:
Vital Signs
Temp Pulse Resp BP Pulse Ox
98.3 F 96 18 111/71 95
05/02/24 07:36 05/02/24 07:40 05/02/24 07:36 05/02/24 07:36 05/02/24 07:40
Intake and Output
05/01/24 05/02/24 05/03/24
06:59 06:59 06:59
Intake Total 1191.0 / 1191.0 314.5 / 314.5
Output Total 1390 / 1390 20 / 20
Balance -199.0 / -199.0 294.5 / 294.5
SaO2 [SIMV] 99
SaO2 95
Nasal Cannula flow liters per 2
minute
Physical Exam
General: Respiratory Distress (negative) and Comfortable
HEENT: Normocephalic and Anicteric
Cardiovascular: S1-S2 and Peripheral Edema (Negative)
Respiratory: Wheeze (Negative), Crackles (Bibasilar), Rhonchi (Negative), Non-Labored Respirations and Chest Tube (Mediastinal chest tubes x 2)
GI: Soft, Non Distended, Non Tender and Normal Bowel Sounds
Neurology: AO x 3 and Tremors (Negative)
Skin: Warm and Dry
Labs/Micro/Reports
Lab Data
05/02/24 03:34
05/02/24 03:34
Laboratory Results
05/01/24 05/01/24
10:35 13:40
PT 17.8 H
INR 1.49
APTT 33.2
pH 7.40 7.44
pCO2 43 40
pO2 171 H 183 H
HCO3 26.6 27.2
O2 Delivery Level
--- NOTE | 2024-05-02 09:19 | W.PN.CD ---
Today's Communication / Plan
-
Doing great POD1
Impression / Plan
-
63 y/o male with bicuspid aortic valve, aortic stenosis, aortic insufficiency, dilated aortic root, hypertension, dyslipidemia, PSVT, ventricular ectopy, and dyslipidemia who is now s/p AVR.
Aortic stenosis and insufficiency, bicuspid aortic valve:
-s/p bio 27mmAVR, MAZE, ANITA clip 05/01/24 Dr. Mason
-intra-op TANYA with EF 60%
-post-op EKG and tele stable in SR
-postop anemia with Hgb 10.1- no blood products yet needed
-Looks remarkably well POD#1
HTN:
-monitor post-op. SBP 110-120 so far
HLD:
-on statin as OP
-crestor 10mg resumed
Outpt cloth mender is Dr Uribe
Physical Exam
Vital Signs/Labs
Vital Signs
Temp Pulse Resp BP Pulse Ox
98.3 F 92 18 120/77 95
05/02/24 07:36 05/02/24 08:50 05/02/24 07:36 05/02/24 08:00 05/02/24 07:40
05/01/24 05/02/24 05/03/24
06:59 06:59 06:59
Actual Weight 201 lb 8.04 oz 204 lb 5.896 oz
05/02/24 03:34
05/02/24 03:34
PT 17.8 Sec (11.4-14.6) H 05/01/24 10:35
INR 1.49 05/01/24 10:35
APTT 33.2 Sec (23.4-35.0) 05/01/24 10:35
Magnesium 2.0 mg/dl (1.6-2.3) 05/02/24 03:34
Physical Exam
Constitutional: No acute distress and Comfortable
Cardiovascular: Rhythm & rate is regular, S1S2 is normal and Murmur/rub/gallop absent
Respiratory: Respiratory effort normal, Wheeze Absent, Crackles Absent and Rhonchi Present
GI: Non tender
Neuro/Psych: AO x 3 and Motor deficits absent
Data Reviewed
-
Date of Service: May 02, 2024
[2024-05-02 10:21] LABS: Glucose - Point of Care 146 mg/dl (70-99)
--- NOTE | 2024-05-02 10:35 | CM ---
Chart reviewed. Patient is independent of ADLS, lives with his daughter in a split level home, 1 PETER, 0 DME. Plan is for the patient to return home with CT Transitional RN. CM to follow
[2024-05-02 12:10] LABS: Glucose - Point of Care 103 mg/dl (70-99)
[2024-05-02] MEDS: NSS IV (12:17)
--- NOTE | 2024-05-02 13:00 | PTCARENOTE ---
No acute changes: vitals stable. NSR. Room air. Stood marched in place and voided 200ml clear yellow urine. No 'dumping' from mediastinal chest tubes.
[2024-05-02] MEDS: FERRLECIT 110 MG IV (13:49)
--- NOTE | 2024-05-02 16:00 | PTCARENOTE ---
Epicardial v wire insulated: patient ambulated 125ft in hallway on room air and tolerated well. See post activity vitals : normotensive. NSR to ST with exertion
--- NOTE | 2024-05-02 20:00 | PTCARENOTE ---
Assumed care of patient at 1900. Patient found OOB in chair with family at bedside at time of assessment. Patient is AOx4, follows commands appropriately, moves all extremities. Lung sounds are diminished at the bases, saO2 96% on RA, patient has
CTx2: 2xmeds draining serosanguineous to single atrium. Heart sounds have a regular rate and rhythm, patient is SR on the monitor HR in 90s, there is a rub present on auscultation, patient has normal palpable pulses, no edema is present. Patient has
soft nontender abdomen and is voiding. Patient has sternal incision approx with surg adhesive BLOCK STACKER. Patient has R IJ cordis receiving KVO and R AC 18 G available for intermittent infusion. Patient has no c/o pain at this time. VSS.
--- NOTE | 2024-05-02 23:58 | PTCARENOTE ---
Patient reassessed. VSS. Remains without c/o pain at this time. Assisted patient back to bed without difficulty assistx1. SR on the director of cardiac rehabilitation.
[2024-05-03] VITALS (16 sets, daily range): BP systolic 101–135; BP diastolic 71–84; PULSE 88; O2SAT 95–97; BMI 28.2
--- NOTE | 2024-05-03 00:46 | W.PN.CT ---
Today's Communication / Plan
-
-pod #2
-no issues overnight, tolerating initiation of BB, NSR 90s
-CT output: 2 meds 65/170 in 12 /24 hrs
-current meds (ASA, Crestor, Lopressor 25 bid (on 100 mg pre-op), Amio, Protonix, iv iron/vit C)
-multimodal pain management
-encourage IS, OOB
Assessment / Plan
-
- Mixed AV stenosis and insufficiency with bicuspid valve morphology and new onset a-fib- s/p AVR (27 mm Kinney Inspiris Resilia), modified maze, and LAAE (35 mm clip) by Dr. Mason on 05/01/24, pod #2
- Intraop TANYA: LVEF 60% pre and post, no wma; no paravalvular leak, a
mean gradient of 4 across the new bioprosthesis, and normal leaflet excursion. RV function and size were both normal.
- Paroxysmal atrial fibrillation
- Hypertension
- Hyperlipidemia
- Catheterization on 04/17/2024 with no significant CAD
- Hx PSVT
- Hx injury of the ascending colon, open wound of the abdomen
- Ascending aortic aneurysm
- Frozen R shoulder
- Former smoker, quit in 2019
- Acute postop blood loss anemia - stable without transfusion
- Acute postop atelectasis
- Acute postop hypovolemia with subsequent hypervolemia
- Suspected acute postop pericarditis/+rub
Subjective
Procedure
s/p AVR (27 mm Kinney Inspiris Resilia), modified maze, and LAAE (35 mm clip) by Dr. Mason on 05/01/24
-
Date of Service: May 03, 2024
Objective Data
-
PT 17.8 Sec (11.4-14.6) H 05/01/24 10:35
INR 1.49 05/01/24 10:35
APTT 33.2 Sec (23.4-35.0) 05/01/24 10:35
Vital Signs
Vital Signs
Temp Pulse Resp BP Pulse Ox
98.1 F 88 18 100/69 94
05/02/24 23:00 05/02/24 23:40 05/02/24 23:00 05/02/24 23:08 05/02/24 23:00
CT Intake/Output/Weight
05/02/24 05/02/24 05/03/24
06:59 18:59 06:59
Intake Total 335.4 / 1191.0 1254.0 / 1254.0
Output Total 555 / 1390 305 / 335 30 / 335
Balance -219.6 / -199.0 949.0 / 919.0 -30 / 919.0
SaO2: 94
Physical Exam
-
General: Awake, Oriented and AOx3
Cardiovascular: Regular rate & rhythm, No Murmurs and No Rub
Respiratory: Clear and Equal
Sternum: Stable
Incision: Clean, Dry and Intact
Extremities: No Edema and No Erythema
Data Reviewed
-
Lab Results: Results Reviewed
Medications: Active Meds Reviewed
Chest X-Ray: Report Reviewed
ECG: Report Reviewed
[2024-05-03] MEDS: TORADOL 15 MG IV (03:43)
[2024-05-03 04:31] LABS: Hematocrit 30.2 % (39.0-52.0); Hemoglobin 10.5 g/dL (13.0-18.0); Mean Corp Hgb Conc. 34.8 g/dL (33.0-37.0); Mean Corpuscular Hgb 30.8 pg (27.0-31.0); Mean Corpuscular Volume 88.6 fL (80.0-94.0); Mean Platelet Volume 9.3 fL (7.4-10.4); Platelet Count 146 10^3/uL (130-400); Red Blood Cell Count 3.41 10^6/uL (4.70-6.10); Red Cell Dist. Width 13.8 % (11.5-14.5); White Blood Cell Count 17.1 10^3/uL (4.8-10.8)
[2024-05-03 04:53] LABS: Blood Urea Nitrogen 24 mg/dl (9-20); Calcium 8.4 mg/dl (8.4-10.2); Carbon Dioxide 28 mmol/L (22-30); Chloride 103 mmol/L (98-107); Estimated Creatinine Clearance 106 ml/min; Glucose 136 mg/dl (70-99); Magnesium 2.2 mg/dl (1.6-2.3); Sodium 135 mmol/L (135-145); eGFR > 60.00
--- NOTE | 2024-05-03 05:30 | PTCARENOTE ---
Patient reassessed. VSS. Patient successfully voided 500 cc dark meli urine in bathroom. Patient c/o 710 pain given toradol per orders. AM labs obtained. Remains SR on the monitor. Assisted patient oob to chair without incident.
[2024-05-03] MEDS: TYLENOL 1000 MG PO ×3 (06:28→20:17)
--- NOTE | 2024-05-03 08:00 | PTCARENOTE ---
pt received from previous RN, oriented, OOB in chair. SR on the monitor, HR 90s. V wires insulated. SBP 100s. palpable pulses, no edema. pt on RA, 98% POX. lungs diminished in bases. IS encouraged. CT x2, no air leak or crepitus noted. pt abdomen
s/n, denies n/v. diet tolerated well. voids. sternal incision GUERO, approximated. chest tube dressing c/d/i. RIJ cordis maintained. PIV. see worklist for VS, I&O, and assessment.
[2024-05-03] MEDS: LOPRESSOR 50 MG PO ×2 (08:34→19:32)
[2024-05-03] MEDS: CRESTOR 10 MG PO (08:34)
[2024-05-03] MEDS: MAGNESIUM OXIDE 500 MG PO ×2 (08:34→19:32)
[2024-05-03] MEDS: NEURONTIN 100 MG PO ×3 (08:34→20:17)
[2024-05-03] MEDS: LOW STRENGTH ASPIRIN 81 MG PO (08:34)
[2024-05-03] MEDS: PACERONE 200 MG PO ×3 (08:34→20:17)
[2024-05-03] MEDS: VITAMIN C 1000 MG PO (08:34)
[2024-05-03] MEDS: SENOKOT-S 1 TABLET PO (08:34)
[2024-05-03] MEDS: FEOSOL 325 MG PO (08:35)
[2024-05-03] MEDS: PROTONIX 40 MG PO (08:35)
[2024-05-03] MEDS: BACTROBAN 2% OINTMENT 1 APPLIC NASAL ×2 (08:35→19:33)
--- NOTE | 2024-05-03 08:48 | W.PN.INTV ---
Today's Communication / Plan
Recommendations
Up OOB as tolerated
Pain control
Encourage incentive spirometer
Patient has been downgraded to CVICU�telemetry status. Consulting Analyst/Pulmonary service will now sign off. Please reconsult if there are any additional questions/concerns, or if patient's respiratory status deteriorates.
Assessment
-
Assessment: 63-year-old male former tobacco smoker ([id number], quit 2019) with a past medical history of severe aortic valve stenosis, bicuspid aortic valve, AAA, hypertension, hyperlipidemia and paroxysmal SVT who presents with surgical aortic
valve replacement. Patient known to cardiothoracic surgery with last office visit on 03/28/2024 Dr. Mason. Most recent echo from December 2023 showed severe aortic valve stenosis with a preserved LVEF at 59% and no regional WMA. Patient was describing
worsening fatigue/shortness of breath especially with exertion. He remains an active man. He underwent left heart catheterization on 04/17/2024 showing moderate aortic stenosis with mean gradient across the AV of 20 mmHg, with no significant CAD.
Surgical treatment of his AV stenosis was discussed, and on 05/01/2024 he underwent sternotomy with SAVR, surgical LA-ablation (modified MAZE) with ANITA�exclusion. Patient tolerated procedure well and was transferred to the CVICU postoperatively with
critical care services consulted for additional management/recommendations.
Chronic conditions BAR ASSISTANT: Bicuspid aortic valve, AAA, severe aortic valve stenosis, paroxysmal SVT, hypertension, torn meniscus, hyperlipidemia, frozen right shoulder, former tobacco use disorder
Impression:
#Aortic valve stenosis/insufficiency with bicuspid valve morphology and new onset paroxysmal atrial fibrillation s/p SAVR, modified MAZE + ANITA�exclusion (POD #2)
#Anemia
#Thrombocytopenia (mild)
#Former tobacco use disorder ([id number], quit 2019)
#Upper lobe predominant paraseptal emphysema (due to tobacco use)
#History of hypertension
Plan:
Patient successfully extubated on 05/01/2024
Maintain SpO2 >90-94%
prn nebulized bronchodilators
Encourage incentive spirometer use 10x/hr for at least 4 hrs a day
Pain control
Maintain MAP>65
Replete electrolytes with K>4, Mg>2
Chest tubes have successfully been removed today
Monitor hemoglobin
Monitor platelet count and coags
Transfuse blood product if needed to maintain Hb>7g/dL, plt>50k (given post-operative status)
Monitor blood sugar to maintain euglycemia with goal BG 140-180
Insulin SQ supplementation as needed to maintain BG goal as above
Aspiration precautions
DVT prophylaxis
Early nutrition
Early mobilization
Given his significant tobacco use history, he does qualify for annual LDCT chest. He recently had a CT chest on 04/03/2024 showing moderate bilateral upper lobe paraseptal emphysema with no focal consolidation, mass or nodule seen. Next CT chest
should be done in March 2025. Outpatient follow-up will be arranged to discuss lung cancer screening as well as obtain full PFTs to assess for COPD.
Patient has been downgraded to CVICU�telemetry status. Consulting Analyst/Pulmonary service will now sign off. Thank you for allowing us to be involved in the care of this patient. Please reconsult if there are any additional questions/concerns, or if
patient's respiratory status deteriorates.
Total time spent today was 55 minutes for this encounter. Time includes reviewing laboratory test/imaging results, reviewing pertinent medical records, obtaining and reviewing medical history, performing an appropriate exam, ordering medications,
tests and procedures. Time also includes documentation of this encounter, coordinating patient care and communicating with other healthcare professionals. Total time does not include separately billed tests performed on this date of service.
Data:
CXR 05/02/2024:
1. Right internal jugular vascular sheath and mediastinal drains in position. No pneumothorax.
2. Hypoaerated lungs without consolidation.
CXR 05/03/2024: No acute disease of the chest
Subjective Dataa
Subjective Data
Date of Service:
Date of Service: May 03, 2024
Chief Complaint: Consulting Analyst Follow Up and Pulmonary Follow Up
Subjective:
Patient seen and evaluated today at bedside. He is sitting in the chair no acute distress. On room air breathing comfortably saturating 96%. Heart rate 89 and BP 116/71. He has been weaned off of the insulin drip. He denies [place], CP, SOB, abd
pain, N/V/f/c.
Review of Systems
General: Other (Negative unless mentioned above)
Objective Data
Data Reviewed
Vital Signs / I&O / Oxygen:
Vital Signs
Temp Pulse Resp BP Pulse Ox
97.5 F 86 21 104/75 98
05/03/24 08:00 05/03/24 09:45 05/03/24 09:45 05/03/24 09:45 05/03/24 08:00
Intake and Output
05/02/24 05/03/24 05/04/24
06:59 06:59 06:59
Intake Total 1191.0 / 1191.0 1254.0 / 1254.0
Output Total 1390 / 1390 870 / 870 35 / 35
Balance -199.0 / -199.0 384.0 / 384.0 -25 / -25
SaO2 [SIMV] 99
SaO2 98
Nasal Cannula flow liters per 98
minute
Physical Exam
General: Respiratory Distress (negative) and Comfortable
HEENT: Normocephalic, Anicteric and Moist Mucous Membranes
Cardiovascular: S1-S2 and Peripheral Edema (Negative)
Respiratory: Wheeze (Negative), Crackles (Bibasilar), Rhonchi (Negative) and Non-Labored Respirations
GI: Soft, Non Distended, Non Tender and Normal Bowel Sounds
Neurology: AO x 3 and Tremors (Negative)
Skin: Warm and Dry
Labs/Micro/Reports
Lab Data
05/03/24 03:53
05/03/24 03:53
--- NOTE | 2024-05-03 09:09 | W.PN.UPDATE ---
Update Note
Progress Note Update
No pacing required overnight. Site cleansed and bipolar pacer wire removed without difficulty. Bedrest x 1 hour. Vital signs q15 min x 4.
--- NOTE | 2024-05-03 10:17 | PTCARENOTE ---
V wire pulled by ALEC Bey @~0910, VS completed q15 x1hr. Med CTs dc'd per orders @~1010. dressing c/d/i. pt ambulated in hallway, OOB in chair.
[2024-05-03] MEDS: LIDOCAINE 4% PATCH TOPICAL (10:52)
[2024-05-03] MEDS: LASIX 40 MG IV (11:27)
[2024-05-03] MEDS: NSS 500 IV (11:27)
--- NOTE | 2024-05-03 11:37 | CM ---
Chart reviewed. Patient is independent of ADLS, lives with his daughter in a split level, 1 PETER, 0 DME. Plan is for the patient to return home with CT Transitional RN. CM to follow
--- NOTE | 2024-05-03 12:32 | PTCARENOTE ---
pt VSS, no changes in assessment. voids in urinal. IS encouraged.
--- NOTE | 2024-05-03 13:54 | W.PN.CD ---
Today's Communication / Plan
-
continue current post op care
Impression / Plan
-
63 y/o male with bicuspid aortic valve, aortic stenosis, aortic insufficiency, dilated aortic root, hypertension, dyslipidemia, PSVT, ventricular ectopy, and dyslipidemia who is now s/p AVR.
Aortic stenosis and insufficiency, bicuspid aortic valve:
-s/p bio 27mmAVR, MAZE, ANITA clip 05/01/24 Dr. Mason
-intra-op TANYA with EF 60%
-post-op EKG and tele stable in SR, pacer wires out today
-diuresis
-postop anemia with Hgb 10.1- no blood products yet needed
-Looks remarkably well POD#2
HTN:
-monitor post-op. SBP 110-120 so far
-bb is being titrated
HLD:
-on statin as OP
-crestor 10mg resumed
Outpt security agent is Dr Uribe
Subjective:
He is doing well without complaint, oob and walking the halls without issue
Physical Exam
Vital Signs/Labs
Vital Signs
Temp Pulse Resp BP Pulse Ox
98.2 F 90 16 116/71 96
05/03/24 11:29 05/03/24 13:30 05/03/24 11:29 05/03/24 11:26 05/03/24 13:27
05/02/24 05/03/24 05/04/24
06:59 06:59 06:59
Actual Weight 92.7 kg 94.2 kg
05/03/24 03:53
05/03/24 03:53
PT 17.8 Sec (11.4-14.6) H 05/01/24 10:35
INR 1.49 05/01/24 10:35
APTT 33.2 Sec (23.4-35.0) 05/01/24 10:35
Magnesium 2.2 mg/dl (1.6-2.3) 05/03/24 03:53
Physical Exam
Constitutional: No acute distress
Cardiovascular: Rhythm & rate is regular, Pedal edema is absent, JVD pressure is normal and Systolic murmur absent
Respiratory: Respiratory effort normal, Lungs clear to auscul., Wheeze Absent, Crackles Absent and Rhonchi Absent
Neuro/Psych: AO x 3
Data Reviewed
-
Date of Service: May 03, 2024
EKG: Other (tele sinus)
[2024-05-03] MEDS: FERRLECIT 110 MG IV (15:27)
--- NOTE | 2024-05-03 16:30 | PTCARENOTE ---
pt VSS, no changes in assessment. ambulating in hallway independently. voids, +BM. no c/o pain. OOB in chair.
[2024-05-03] MEDS: SENOKOT-S PO (19:39)
--- NOTE | 2024-05-04 00:42 | PTCARENOTE ---
pt resting comfortably, no change in assessment.
[2024-05-04 04:23] VITALS: BP 109/73
[2024-05-04 04:48] LABS: Hematocrit 29.1 % (39.0-52.0); Hemoglobin 10.2 g/dL (13.0-18.0); Mean Corp Hgb Conc. 35.1 g/dL (33.0-37.0); Mean Corpuscular Volume 88.4 fL (80.0-94.0); Mean Platelet Volume 9.3 fL (7.4-10.4); Platelet Count 135 10^3/uL (130-400); Red Blood Cell Count 3.29 10^6/uL (4.70-6.10); Red Cell Dist. Width 13.5 % (11.5-14.5); White Blood Cell Count 11.9 10^3/uL (4.8-10.8)
[2024-05-04 05:15] LABS: Blood Urea Nitrogen 16 mg/dl (9-20); Calcium 8.1 mg/dl (8.4-10.2); Carbon Dioxide 29 mmol/L (22-30); Chloride 105 mmol/L (98-107); Estimated Creatinine Clearance 122 ml/min; Glucose 99 mg/dl (70-99); Magnesium 1.9 mg/dl (1.6-2.3); Potassium 3.8 mmol/L (3.5-5.1); Sodium 136 mmol/L (135-145); eGFR > 60.00
--- NOTE | 2024-05-04 05:17 | W.PN.CT ---
Today's Communication / Plan
-
-pod #2
-no issues overnight
-current meds (ASA, Crestor, Lopressor 25 bid (on 100 mg pre-op), Amio, Protonix, iv iron/vit C)
-multimodal pain management
-encourage IS, OOB
-TTE today
-discharge planning
Assessment / Plan
-
- Mixed AV stenosis and insufficiency with bicuspid valve morphology and new onset a-fib- s/p AVR (27 mm Kinney Inspiris Resilia), modified maze, and LAAE (35 mm clip) by Dr. Mason on 05/01/24, pod #3
- Intraop TANYA: LVEF 60% pre and post, no wma; no paravalvular leak, a
mean gradient of 4 across the new bioprosthesis, and normal leaflet excursion. RV function and size were both normal.
- Paroxysmal atrial fibrillation
- Hypertension
- Hyperlipidemia
- Catheterization on 04/17/2024 with no significant CAD
- Hx PSVT
- Hx injury of the ascending colon, open wound of the abdomen
- Ascending aortic aneurysm
- Frozen R shoulder
- Former smoker, quit in 2019
- Acute postop blood loss anemia - stable without transfusion
- Acute postop atelectasis
- Acute postop hypovolemia with subsequent hypervolemia
- Suspected acute postop pericarditis/+rub
Subjective
Procedure
s/p AVR (27 mm Kinney Inspiris Resilia), modified maze, and LAAE (35 mm clip) by Dr. Mason on 05/01/24
-
Date of Service: May 04, 2024
Objective Data
-
Lab Results
05/04/24 04:24
05/04/24 04:24
PT 17.8 Sec (11.4-14.6) H 05/01/24 10:35
INR 1.49 08/05/24 10:35
APTT 33.2 Sec (23.4-35.0) 05/01/24 10:35
Vital Signs
Vital Signs
Temp Pulse Resp BP Pulse Ox
99.0 F 81 14 116/73 97
05/03/24 20:00 05/04/24 00:30 05/04/24 00:00 05/03/24 22:59 05/04/24 00:00
CT Intake/Output/Weight
05/03/24 05/03/24 05/04/24
06:59 18:59 06:59
Intake Total 160 / 160
Output Total 565 / 870 1755 / 2755 1000 / 2755
Balance -565 / 384.0 -1595 / -2595 -1000 / -2595
SaO2: 97
Physical Exam
-
General: AOx3
Cardiovascular: Regular rate & rhythm
Respiratory: Clear
Sternum: Stable
Incision: Clean, Dry and Intact
Extremities: No Edema
[2024-05-04 06:00] VITALS: BMI 27.7
[2024-05-04] MEDS: TYLENOL 1000 MG PO (06:40)
[2024-05-04] MEDS: KCL 20 MEQ PO ×2 (06:40→09:01)
--- NOTE | 2024-05-04 08:00 | PTCARENOTE ---
pt received from previous RN. OOB in chair. AAOx3. NSR on the monitor, HR 80s. palpable pulses, no edema. pt on RA, 98% POX. IS 4000. +bs. BRP, MSI GUERO. PIV. cordis for d/c. will shower and do stairs before d/c
--- NOTE | 2024-05-04 08:49 | W.DCSUMMARY ---
Discharge Summary
Discharge Data
Date of Admission: 05/01/24
Date of Discharge: 05/04/24
Total time spent discharging patient (in min): 40
-
Pending Results: No
Hospital Course
Primary care physician:
Dr. Saunders
Outpatient stamping die maker bench:
Dr. Uribe
Inpatient consultants:
CBC, cell coverer
Procedures:
1. Surgical aortic valve replacement [27 mm bioprosthesis], MAZE, LAAC
Primary Diagnosis:
1. Mixed aortic valve stenosis and insufficiency with bicuspid valve morphology and new onset atrial fibrillation
Secondary Diagnoses:
1. Paroxysmal Atrial fibrillation
2. Hypertension
3. Hyperlipemia
4. Acute blood loss anemia
HPI: 63-year-old male with known bicuspid aortic valve morphology and also family history of bicuspid aortic valve disease requiring surgical intervention, he has preserved left ventricular ejection fraction and a normal ascending and root diameter
on CT angiogram. He did develop more recently shortness of breath and fatigue with exertion and saw Dr. Mason in the office. He presented electively on 05/01 for aortic valve replacement with Dr. Mason.
Hospital course: Patient was electively admitted on 05/01 for a surgical aortic valve replacement with Dr. Mason. Postoperatively he returned to the CVICU on Levophed, Precedex, and insulin. On postoperative day #1, his Levophed was weaned off and
patient was started on aspirin and beta-blockers. Cabrera catheter was removed and insulin drip was turned off. On 05/03 postoperative day #2 patient's beta-blockers were increased to 50 mg twice daily and ventricular wires were pulled along with his
chest tubes. He was then diuresed with 40 mg of IV Lasix on 05/04 postoperative day #3, patient remained stable. Beta-soni was changed to his home dose of metoprolol succinate 100 mg daily. He was diuresed with 20 mg of IV Lasix. His cordis was
removed and he was deemed stable for discharge home.
Home medication changes:
See below
Discharge Plan
-
Patient Disposition: Home (Routine Discharge)
Discharge Diagnosis/Procedures: Aortic valve replacement
Condition: Good
Diet: Low Cholesterol and Low Sodium
Activity: No strenuous activity
Driving Restrictions: Not until seen by your Dr
Bathing Restrictions: OK to Shower
Other Services: Cardiac Rehab
Specialty Instructions: Weigh Daily- Call MD for wt gain/loss 3 lbs overnight/5 lbs in 1 week
Activity Restrictions/Additional Instructions:
ACTIVITY:
-No strenuous activity: no heavy lifting, pushing, pulling anything over 15 pounds for one month
-continue to use stairs as tolerated
DRIVING RESTRICTIONS:
-No driving for one month or until approved by your surgeon
WOUND CARE:
-Shower daily. Use soap & water.
-No lotions, creams or powders on incision area.
DIET:
-continue a low fat/low cholesterol diet.
-IF you are diabetic, continue carb controlled diet.
CARDIAC REHAB:
-Please make appointment to start in 5-6 weeks with your local hospital program. (See Cardiac Rehabilitation Discharge Booklet).
SPECIALTY INSTRUCTIONS:
-Weigh yourself daily. Call your physician for any weight gain/loss of 3 lbs overnight or 5 lbs in one week.
-REPORT any clicking noise or uneven appearance of your sternum to your surgeon immediately.
-If you smoke, you are instructed to quit. The [place] smoking hotline phone number is [phone]
Referrals:
CT Transitional Care Nurse [Outside] (The Cardiothoracic Transitional Care Nurse will call you to set up a visit in 1-2 days.)
Ariel Robert MD [Active] - in one to two months
(obtain full PFTs on day of office visit.
Discuss annual LDCT chest given tobacco smoking history)
Ariel Uribe MD [Active] - 06/07/24 11:20 am
Jose Miguel Saunders, [Family Provider] -
Mike Mason MD [Active] - 06/01/24 1:15 pm
Additional Discharge Medication Instructions: DO NOT HAVE SEXUAL ACTIVITY UNTIL CLEARED BY THE SURGEON. YOUR CIALSIS WILL BE ON HOLD UNTIL CLEARANCE
Prescriptions:
Continued
aspirin 81 mg Tablet,Delayed Release (Dr/Ec)
81 mg DAILY
valacyclovir [Valtrex] 1 gram Tablet
1 mg PO PRN PRN (Reason: cold sores)
metoprolol succinate 100 mg Tablet Extended Release 24 Hr
100 mg PO DAILY
rosuvastatin 10 mg Tablet
10 mg PO DAILY
ascorbic acid (vitamin C) [Vitamin C] 1,000 mg Tablet
1,000 mg PO DAILY
Held
tadalafil [Cialis] 10 mg Tablet
10 mg PO DAILY PRN (Reason: ED)
Hold Instructions: Resume on 06/01/24.
Discharge Orders:
Discharge Patient (As Directed); Ordered 05/04/24
Ordered By: Emily Shah
Care Plan Goals
Care Plan Goals:
Problem: Readiness for enhanced knowledge related to diagnosis and treatment plan
Goal: Understand your diagnosis and treatment plan needs, including medications if applicable.
Instructions: Know your diagnosis, underlying causes and treatment plan options, including medications if applicable. Consult with your health care team to learn about your diagnosis and treatment plan, including medications if applicable.
Discharge Date and Time
Print Language: PALAUAN
[2024-05-04] MEDS: PROTONIX 40 MG PO (08:58)
[2024-05-04] MEDS: CRESTOR 10 MG PO (08:58)
[2024-05-04] MEDS: MAGNESIUM OXIDE 500 MG PO (08:59)
[2024-05-04 09:00] VITALS: BP 128/79
[2024-05-04] MEDS: VITAMIN C 1000 MG PO (09:00)
[2024-05-04] MEDS: NEURONTIN 100 MG PO (09:01)
[2024-05-04] MEDS: LIDOCAINE 4% PATCH TOPICAL (09:01)
[2024-05-04] MEDS: LOW STRENGTH ASPIRIN 81 MG PO (09:01)
[2024-05-04] MEDS: FEOSOL 325 MG PO (09:01)
[2024-05-04] MEDS: SENOKOT-S 1 TABLET PO (09:01)
[2024-05-04] MEDS: BACTROBAN 2% OINTMENT 1 APPLIC NASAL (09:02)
[2024-05-04] MEDS: NSS IV (09:02)
[2024-05-04] MEDS: PACERONE 200 MG PO (09:02)
[2024-05-04] MEDS: LASIX 20 MG IV (09:26)
[2024-05-04] MEDS: TOPROL XL 100 MG PO (09:27)
[2024-05-04] MEDS: LOPRESSOR PO (10:30)
--- NOTE | 2024-05-04 10:30 | W.PN.CD ---
Today's Communication / Plan
-
cont ASA, crestor, Toprol XL
stable post op
Impression / Plan
-
63 y/o male with bicuspid aortic valve, aortic stenosis, aortic insufficiency, dilated aortic root, hypertension, dyslipidemia, PSVT, ventricular ectopy, and dyslipidemia who is now s/p AVR.
Aortic stenosis and insufficiency, bicuspid aortic valve:
-s/p bio 27mmAVR, MAZE, ANITA clip 05/01/24 Dr. Mason
-intra-op TANYA with EF 60%
-post-op EKG and tele stable in SR
-stable: cont ASA, Toprol XL
HTN:
-stable on Toprol XL 100mg daily
HLD:
-on statin as OP
-crestor 10mg resumed
Outpt sap bi developer is Dr Uribe
Subjective:
No cardiac complaints
Physical Exam
Vital Signs/Labs
Vital Signs
Temp Pulse Resp BP Pulse Ox
98.0 F 87 18 128/79 96
05/04/24 08:00 05/04/24 10:00 05/04/24 08:00 05/04/24 09:27 05/04/24 09:00
05/03/24 05/04/24 05/05/24
06:59 06:59 06:59
Actual Weight 94.2 kg 92.4 kg
05/04/24 04:24
05/04/24 04:24
PT 17.8 Sec (11.4-14.6) H 05/01/24 10:35
INR 1.49 05/01/24 10:35
APTT 33.2 Sec (23.4-35.0) 05/01/24 10:35
Magnesium 1.9 mg/dl (1.6-2.3) 05/04/24 04:24
Physical Exam
Constitutional: No acute distress and Comfortable
EENT: Moist mucous membranes
Cardiovascular: Rhythm & rate is regular, Pedal edema is absent, JVD pressure is normal and Systolic murmur absent
Respiratory: Respiratory effort normal, Lungs clear to auscul. and Wheeze Absent
GI: Soft and Distention absent
Neuro/Psych: AO x 3
Data Reviewed
-
Date of Service: May 04, 2024
EKG: Other (Tele: SR 80s)
Labs: Labs Reviewed by me
--- NOTE | 2024-05-04 11:36 | PTCARENOTE ---
pt VSS, no changes in assessment. using IS independently. walking independently for d/c this afternoon.
[2024-05-04 11:53] VITALS: BP 110/75
[2024-05-04 12:02] VITALS: BP 123/71
[2024-05-04 14:01] VITALS: BP 110/75; BP 123/71; PULSE 82; O2SAT 95; O2SAT 98
== END 2024-05-04 15:44 | disposition home or self-care (01) | DRG 220 ==
LOC: CVICU 05:16
PROVIDERS: Anesthesiology; Physician Assistant Medical; ADMITTING PHYSICIAN Thoracic Surgery (Cardiothoracic Vascular Surgery); CONSULT PHYSICIAN Internal Medicine Critical Care Medicine; FAMILY PHYSICIAN Family Medicine
PROC: 02580ZZ Destruction of Conduction Mechanism, Open Approach (ICD-10-PCS; 2024-05-01)
PROC: 02RF08Z Replacement of Aortic Valve with Zooplastic Tissue, Open Approach (ICD-10-PCS; 2024-05-01)
PROC: 5A1221Z Performance of Cardiac Output, Continuous (ICD-10-PCS; 2024-05-01)
PROC: B24BZZ4 Ultrasonography of Heart with Aorta, Transesophageal (ICD-10-PCS; 2024-05-01)
PROC: 02L70CK Occlusion of Left Atrial Appendage with Extraluminal Device, Open Approach (ICD-10-PCS; 2024-05-01)
DX: Q23.1 Congenital insufficiency of aortic valve (principal); D62 Acute posthemorrhagic anemia; J98.11 Atelectasis; I30.9 Acute pericarditis, unspecified; I48.0 Paroxysmal atrial fibrillation; E78.00 Pure hypercholesterolemia, unspecified; I10 Essential (primary) hypertension; I71.21 Aneurysm of the ascending aorta, without rupture; J43.9 Emphysema, unspecified; D69.6 Thrombocytopenia, unspecified; E86.1 Hypovolemia; E87.70 Fluid overload, unspecified; Z79.82 Long term (current) use of aspirin; Z79.899 Other long term (current) drug therapy; Z82.49 Family history of ischemic heart disease and other diseases of the circulatory system; Z87.891 Personal history of nicotine dependence
CPT/HCPCS: 88305; 88311; 94727; 94729; 33259; 36415; 71045; 80048; 80053; 81003; 82248; 82330; 82565; 82805; 82810; 82947; 82962; 83036; 83735; 84132; 84302; 84520; 85014; 85018; 85025; 85027; 85049; 85610; 85730; 86850; 86900; 86901; 86920; 87070; 93005; 93312; 93320; 93325; 93880; 94002; 94010; J2916; P9045

== ENCOUNTER → 2025-04-05 07:15 | Outpatient (REF) | payer BC, SELFPAY ==
[2025-04-05 10:25] LABS: ALT (SGPT) 27 U/L (0-50); AST (SGOT) 24 U/L (17-59); Albumin 4.4 g/dl (3.5-5.0); Alkaline Phosphatase 57 U/L (38-126); Blood Urea Nitrogen 12 mg/dl (9-20); Calcium 9.3 mg/dl (8.4-10.2); Carbon Dioxide 23 mmol/L (22-30); Chloride 111 mmol/L (98-107); Glucose 102 mg/dl (70-99); HDL Cholesterol 41 mg/dl; LDL Cholesterol, Calculated 64 mg/dl; Potassium 4.3 mmol/L (3.5-5.1); Sodium 139 mmol/L (135-145); Total Protein 6.9 g/dl (6.3-8.2); Very Low Density Lipoprotein 29 mg/dl (0-30); eGFR > 60.00
== END ==
LOC: HWLAB 07:15
PROVIDERS: ATTENDING PHYSICIAN Internal Medicine Cardiovascular Disease; FAMILY PHYSICIAN Family Medicine
DX: R00.0 Tachycardia, unspecified (principal); E78.2 Mixed hyperlipidemia
CPT/HCPCS: 36415; 80053; 80061